=== PATIENT | female | born 1965 | race Caucasian/White ===

== ENCOUNTER 2018-06-23 10:17 | Emergency (ER) | payer SELFPAY ==
[2018-06-23 10:51] VITALS: PULSE 90; RESP 16; TEMP 36.6; O2SAT 98
--- NOTE | 2018-06-23 12:33 | ED_ITS ---
HPI - Skin/Abscess/Foreign Bdy <TELMA Morris - Last Filed: 06/23/18 21:50> General Chief complaint: Skin/Abscess/Foreign Body Stated complaint: Sensation all over body, extreme pain Time Seen by Provider: 06/23/18 12:20 Source: patient Mode of arrival: ambulatory Limitations: no limitations History of Present Illness HPI narrative: 52-year-old female with history of anxiety and depression who was a nonsmoker here for complaint of having pruritus globally for the past couple of months. She was seen by primary care provider for this and she was placed on Zyrtec and also Cymbalta. She reports that her symptoms have worsened. And that these medications have not helped. She denies any other changes in her medications. She denies any hygiene changes no changes in her environment or her diet. She denies any relievers of her symptoms at with exception of not wearing clothes. She denies any rash. She denies any suicidal homicidal ideation. She does report that she has had worsening depression over the past several weeks as well. MD complaint: other Related Data Previous Rx's Medication Instructions Recorded gabapentin 100 mg PO TID #30 cap 06/23/18 Allergies Allergy/AdvReac Type Severity Reaction Status Date / Time No Known Allergies Allergy Uncoded 07/26/17 12:51 Review of Systems <TELMA Morris - Last Filed: 06/23/18 21:50> Constitutional Denies chills, Denies fatigue, Denies fever(s), Denies lethargy and Denies weakness Eyes Denies change in vision, Denies eye discharge, Denies irritation and Denies loss of vision ENT Ears, Nose, Mouth, and Throat: Denies change in voice, Denies neck pain and Denies sore throat Cardiovascular Denies dyspnea and Denies dyspnea on exertion Respiratory Denies cough, Denies dyspnea, Denies dyspnea on exertion and Denies wheezing Gastrointestinal Gastrointestinal: Denies abdominal pain, Denies change in bowel habits, Denies diarrhea, Denies nausea and Denies vomiting Genitourinary Denies hematuria, Denies flank pain, Denies urinary incontinence and Denies urinary urgency Musculoskeletal Denies neck pain Integumentary/Breasts Reports pruritus Neurologic Denies confusion, Denies loss of vision and Denies weakness Psychiatric Denies anxiety, Denies confusion, Denies depression, Denies homicidal ideation and Denies suicidal ideation Endocrine Denies fatigue and Denies flushing Hematologic/Lymphatic Denies easy bruising Allergic/Immunologic Denies wheezing Exam <TELMA Morris - Last Filed: 06/23/18 21:50> Initial Vital Signs Initial Vital Signs: Vital Signs Temperature 97.8 F 06/23/18 10:51 Pulse Rate 90 06/23/18 10:51 Respiratory Rate 16 06/23/18 10:51 Pulse Oximetry 98 06/23/18 10:51 Const General: cooperative and well developed Nutritional Appearance: well nourished Orientation: alert, awake, oriented x3 and not confused HENMT Mouth: oral mucosae normal and moist mucous membranes Eyes Conjunctivae: conjunctivae normal Sclera: sclerae normal Pupils: PERRL EOM: EOM intact bilaterally Resp Effort & Inspection: normal respiratory effort, able to speak in complete sentences, no respiratory distress and no use of accessory muscles Auscultation: clear to auscultation bilaterally, no rales, no rhonchi and no wheezes Cardio Rate: regular rate Rhythm: regular rhythm Heart Sounds: no click, no gallops, no murmurs and no rubs Pulses: normal peripheral pulses Skin General: no rashes or lesions noted, No jaundice and No petechiae Neuro General: alert, oriented x3, gait normal and no focal motor deficits Speech: speech normal Psych Appearance: well kempt Mental Status: mental status grossly normal Attitude: cooperative Thought Content: normal, no homicidality and suicidality Judgment: judgment good <Henrietta Wyatt DO - Last Filed: 06/27/18 07:08> Initial Vital Signs Initial Vital Signs: Vital Signs Temperature 97.8 F 06/23/18 10:51 Pulse Rate 90 06/23/18 10:51 Respiratory Rate 16 06/23/18 10:51 Pulse Oximetry 98 06/23/18 10:51 Course <TELMA Morris - Last Filed: 06/23/18 21:50> Orders Ordered: ED Orders 06/23/18 13:34 Complete Blood Count AUTO DIFF Stat Comprehensive Metabolic Panel Stat Vital Signs - 8 hr 06/23/18 10:51 Temperature 97.8 F Pulse Rate 90 Respiratory Rate 16 Pulse Oximetry 98 <Henrietta Wyatt DO - Last Filed: 06/27/18 07:08> Orders Ordered: ED Orders 06/23/18 13:34 Complete Blood Count AUTO DIFF Stat Comprehensive Metabolic Panel Stat Vital Signs - 8 hr 06/23/18 10:51 Temperature 97.8 F Pulse Rate 90 Respiratory Rate 16 Pulse Oximetry 98 MDM - Skin/Abscess/Foreign Bdy <Tee TapiaTELMA - Last Filed: 06/23/18 21:50> MDM Narrative Medical decision making narrative: Differential whether not depression is a cause of her pruritus or other metabolic issues. Was unable to check basic labs today as patient stated she did not want to deal with the discomfort of a blood draw. She declines having blood checked today. She denies any suicidal homicidal ideation. She is provided with resources to follow up with later this week for mental health at [facility] she states that she will call them this week. Will provide trial of gabapentin to see if it helps with her symptoms. Follow up with primary care provider this week. Return emergency room for worsening symptoms. Discharge Plan Departure Patient Disposition: Home Clinical Impression: Generalized pruritus Discharge Date/Time: 06/23/18 14:23 Interventions: ED Discharge Assessment Last Done: 06/23/18 14:23 Instructions: DI for Itching Activity Restrictions/Additional Instructions: Itching may be secondary to depression and anxiety. Make sure you are taking her depression medicine as prescribed. Follow up with mental health this week. Also follow up with her primary care provider. Will prescribe trial of gabapentin to see if it helps with her symptoms. Use as directed. For any worsening symptoms return to the emergency room. Prescriptions: New gabapentin 100 mg capsule 100 mg PO TID Qty: 30 RF: 0 Referrals: Dakota Venegas DO [Primary Care Provider] - <Henrietta Wyatt DO - Last Filed: 06/27/18 07:08> Cosign ED Attending Cosbrunoature Attestation: I was immediately available in the department for consultation. This documentation has been reviewed and I agree with assessment and plan. Supervised by Henrietta Wyatt DO
--- NOTE | 2018-06-23 14:17 | PC.NURSE ---
lab not able to draw/ pt refused 2nd draw/ md aware
== END 2018-06-23 14:23 | disposition home or self-care (01) ==
PROVIDERS: Emergency Provider Nurse Practitioner Family; PCP Family Medicine
DX: L29.8 Other pruritus (principal)
CPT/HCPCS: 36415; 99282

== ENCOUNTER 2020-11-06 09:28 | Emergency (ER) | payer OTHER, SELFPAY ==
[2020-11-06 09:55] VITALS: BP 193/121; PULSE 88; RESP 16; TEMP 37; O2SAT 96; BMI 42.3
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
--- NOTE | 2020-11-06 11:00 | DI.CT.S_ITS ---
PROCEDURE: CT HEAD/BRAIN WO CON INDICATIONS: worse headache TECHNIQUE: Noncontrast 4.5 mm thick angled axial sections acquired from the foramen magnum to the vertex, with coronal and sagittal reformats. For radiation dose reduction, the following was used: automated exposure control, adjustment of mA and/or kV according to patient size. COMPARISON: None. FINDINGS: Image quality: Excellent. CSF spaces: Basal cisterns are patent. No extra-axial fluid collections. Ventricles are normal in size and shape. Brain: No intracranial hemorrhage, mass, or mass effect. Newsome-white matter interface appears preserved. Skull and face: Calvarium and visualized facial bones are intact, without suspicious lesions. Sinuses: Visualized sinuses and mastoids are clear. IMPRESSION: 1. No acute intracranial abnormality. Dictated by: Dangelo Solis M.D. on 11/06/2020 at 10:59 Approved by: Dangelo Solis M.D. on 11/06/2020 at 11:01
[2020-11-06 11:09] VITALS: BP 190/120; PULSE 100; RESP 18; O2SAT 99
[2020-11-06] MEDS: ONDANSETRON 4 MG ODT SL (11:19)
[2020-11-06] MEDS: IBUPROFEN 400 MG TABLET 800 MG PO (11:19)
== END 2020-11-06 12:39 | disposition home or self-care (01) ==
PROVIDERS: Emergency Provider Emergency Medicine; PCP Family Medicine
DX: R51.9 Headache, unspecified (principal); R11.0 Nausea
CPT/HCPCS: 70450; 99284